=== PATIENT | male | born 1995 | race Caucasian/White ===

== ENCOUNTER 2017-05-06 18:10 | Emergency (ER) | payer OTHER ==
[~2017-05-06] VITALS: Ht 190.5 cm; Wt 68.0 kg
[~2017-05-06 18:10] MED LIST: IBUPROFEN 600600 M1 PO; NOHOMEMEDICATIONS
[2017-05-06 18:41] LABS: ABSOLUTE NEUTROPHILS 6.5 thou/uL (1.4-8.2); BASOPHILS 0.2 % (0.0-2.0); EOSINOPHILS 0.2 % (0.0-3.0); HEMATOCRIT 48.8 % (42.0-52.0); HEMOGLOBIN 17.1 gm/dL (14.0-18.0); MCV 85.5 fL (80.0-100.0); MONOCYTES 5.8 % (1.0-8.0); PLATELET COUNT 206 thou/uL (150-400); POLYS 85.8 % (36.0-66.0); RBC 5.71 mil/uL (4.50-6.00); RDW 12.8 % (10.5-14.5); WBC 7.6 thou/uL (4.0-11.0)
[2017-05-06 18:42] LABS: URINE BILIRUBIN NEGATIVE (Negative); URINE BLOOD NEGATIVE (Negative); URINE CLARITY CLEAR; URINE COLOR YELLOW; URINE GLUCOSE-RANDOM* NEGATIVE (Negative); URINE KETONES 3+ (Negative); URINE LEUKOCYTES NEGATIVE (Negative); URINE NITRITE NEGATIVE (Negative); URINE PROTEIN (DIPSTICK) TRACE (Negative); URINE UROBILINOGEN 0.2 E.U./dl (0.2-1.0)
[2017-05-06 18:45] LABS: URINE REDUCING SUBSTANCE NEGATIVE
[2017-05-06 18:54] LABS: CALCIUM 9.5 mg/dL (8.5-10.1); CREATININE 1.1 mg/dL (0.7-1.3); POTASSIUM 3.2 mmol/L (3.5-5.1)
[2017-05-06 19:00] LABS: ALBUMIN 4.4 g/dL (3.4-5.0); DIRECT BILIRUBIN 0.2 mg/dL (<0.1-0.3); TOTAL PROTEIN 7.9 g/dL (6.4-8.2)
[2017-05-06] MEDS ORDERED: PEPCID20 MG PO (19:36)
[2017-05-06] MEDS ORDERED: PROMS25 WY RECTAL (19:36)
== END 2017-05-06 19:41 | disposition home or self-care (01) ==
LOC: ER 18:10
PROVIDERS: Nurse Practitioner
DX: K52.9 Noninfective gastroenteritis and colitis, unspecified (principal); R11.2 Nausea with vomiting, unspecified; F17.210 Nicotine dependence, cigarettes, uncomplicated

== ENCOUNTER 2019-07-18 16:53 | Observation (INO) | payer OTHER ==
[~2019-07-18] VITALS: Ht 188 cm; Wt 76.2 kg
[~2019-07-18 16:53] MED LIST changes: +PEPCID20 MG PO; +PROMS25 WY RECTAL
[2019-07-18 16:54] VITALS: BP 122/74
[2019-07-18 17:30] LABS: ABSOLUTE NEUTROPHILS 8.9 thou/uL (1.4-8.2); BASOPHILS 0.3 % (0.0-2.0); EOSINOPHILS 0.5 % (0.0-3.0); HEMATOCRIT 51.6 % (42.0-52.0); HEMOGLOBIN 17.7 gm/dL (14.0-18.0); LYMPHOCYTES 7.8 % (24.0-44.0); MCH 30.1 pg (26.0-34.0); MCHC 34.4 g/dL (28.0-37.0); MCV 87.6 fL (80.0-100.0); MONOCYTES 5.6 % (1.0-8.0); PLATELET COUNT 249 thou/uL (150-400); POLYS 85.8 % (36.0-66.0); RBC 5.89 mil/uL (4.50-6.00); RDW 12.9 % (10.5-14.5); WBC 10.4 thou/uL (4.0-11.0)
[2019-07-18 17:37] LABS: URINE BILIRUBIN 2+ (Negative); URINE BLOOD NEGATIVE (Negative); URINE CLARITY CLEAR; URINE COLOR YELLOW; URINE GLUCOSE-RANDOM* NEGATIVE (Negative); URINE KETONES 3+ (Negative); URINE LEUKOCYTES-REFLEX TRACE (Negative); URINE NITRITE-REFLEX NEGATIVE (Negative); URINE PROTEIN (DIPSTICK) 1+ (Negative); URINE SPECIFIC GRAVITY >= 1.030 (1.005-1.035)
[2019-07-18 17:38] LABS: CALCIUM 9.7 mg/dL (8.5-10.1); POTASSIUM 3.5 mmol/L (3.5-5.1)
[2019-07-18 17:39] LABS: ICTOTEST (BILI CONFIRMATORY) Positive (Negative)
[2019-07-18 17:44] LABS: ALBUMIN 4.8 g/dL (3.4-5.0); TOTAL PROTEIN 8.1 g/dL (6.4-8.2)
[2019-07-18 17:44] LABS: AMP/METHAMP Negative (Negative); BARBITURATES Negative (Negative); BENZODIAZEPINES Negative (Negative); CALCIUM OXALATE 4-10 Moderate /LPF (None Seen); COCAINE Negative (Negative); METHADONE Negative (Negative); MUCUS 4-6 Moderate strn/LPF (None Seen); OPIATES Negative (Negative); PCP Negative (Negative)
[2019-07-18 17:46] LABS: BACTERIA-REFLEX 1-9 Few /HPF (None Seen); CASTS None Seen /LPF (None Seen); SQUAMOUS 0-3 Few /LPF (0-3); TRANSITIONAL EPITHEL CELL 0-3 Few /LPF (None Seen); URINE RBC 0-2 Rare /HPF (0-2); URINE WBC-REFLEX 0-5 Rare /HPF (0-5)
[2019-07-18] MEDS ORDERED: ZOFRAN4 MG PO (17:50)
[2019-07-18] MEDS ORDERED: PHENERGAN 25 MG25 MG PO (17:51)
[2019-07-18 17:57] VITALS: BP 122/74
[2019-07-18 18:27] VITALS: BP 130/86
[2019-07-18 19:10] VITALS: BP 114/77
[2019-07-18] MEDS ORDERED: NEXIUM20 MG PO (19:44)
--- NOTE | 2019-07-19 01:36 | NUR ---
PT AOX4. PT DENIES PAIN AND SOB. PT DENIES NAUSEA AT THIS TIME. PT TOLERATING PO INTAKE OF CLEAR LIQUIDS. PT NPO AT MIDNIGHT. PT AMBULATING INDEPENDENTLY WITH STBA. PT ORIENTED TO UNIT. ENCOURAGED PT TO NOTIFY STAFF FOR ALL NEEDS AND CONCERNS. WILL CONTINUE TO MONITOR.
[2019-07-19 04:30] VITALS: BP 129/76
--- NOTE | 2019-07-19 05:04 | NUR ---
CARE ASSUMED AT 0100. PT ALERT AND ORIENTED. IV FLUIDS AND ABX PER EMR. KEPT NPO OVERNIGHT. NO ANY DISCOFORT REPORTED. NO NAUSEA, VOMITING OR DIARRHEA. WILL CONTINUE WITH POC.
[2019-07-19 08:09] VITALS: BP 140/83
--- NOTE | 2019-07-19 14:00 | NUR ---
PT BACK FROM HAVING EDG DR THEISING STATES CAN GO HOME IF TOLERATES CLEAR LIQUID DIET. PT HAS IV ABD INFUSING. STATES NO PAIN OR RESP DISTRESS. IS DRINKING FLUIDS AND EATING JELLO.
[2019-07-19] MEDS ORDERED: NEXIUM20 MG PO (15:10)
[2019-07-19] MEDS ORDERED: ZOFRAN 4 MG ORAL4 MG PO (15:11)
[2019-07-19 16:12] VITALS: BP 144/68
[2019-07-19 17:01] VITALS: BP 144/68
[2019-07-19 17:08] VITALS: BP 144/68
--- NOTE | 2019-07-19 17:09 | P ---
[facility] [place] [address] PROCEDURE REPORT Name: VANESSA MALHOTRA Room #: 437-P ADM IN M.R.#: [id number] Admission: 07/18/19 Attend Phys: Jayant Miranda MD Discharge: Date of : 89 Report #: [id number] THIS REPORT FOR: cc: JACINDA - No family physician/PCP JACINDA - No family physician/PCP Familia Padilla MD ~ CC: Jayant MONACO physician/PCP INPATIENT UPPER ENDOSCOPY REPORT BRIEF HISTORY: The patient is a 24-year-old male who presented to [facility] with persistent nausea and vomiting. He was seen several days ago at [facility] and had a CT scan and was told that he had colitis and discharged on antibiotics. He continued to have nausea and vomiting and now presents to [facility]. It is my understanding that COVID-19 screen in the ER was negative. It is also noted that he smokes marijuana daily and often times smokes multiple times per day. PREOPERATIVE DIAGNOSES: Nausea, vomiting, chronic daily marijuana use. POSTOPERATIVE DIAGNOSES: 1. [id number]-[id number] ulcerative esophagitis, distal esophagus. 2. Gastritis and few scattered erosions. 3. Trauma in cardia of stomach, likely secondary to vomiting. MEDICATIONS: Deep sedation with propofol per anesthesia. SPECIMEN: Biopsies of gastritis. ESTIMATED BLOOD LOSS: 3 mL. PROCEDURE: EGD with biopsy. FINDINGS: Prior to propofol sedation, procedure of upper endoscopy was discussed with the patient as well as potential risks and its complications. He indicates he understands and desires to proceed. DESCRIPTION OF PROCEDURE: With the patient in left lateral decubitus position, the Olympus video endoscope was inserted in cervical esophagus under direct vision without difficulty. Examination of this organ through its entire style length revealed normal esophageal mucosa down the squamocolumnar junction. Squamocolumnar junction was noted to be ulcers involving much of the circumference, but not the entire circumference consistent with a grade C esophagitis. There were some superficial ulcerations. He has had longstanding reflux symptoms and some of this may be related to reflux, but also some of this may be related to recent vomiting. There were no strictures or masses. A [facility] [address] [place] [address] PROCEDURE REPORT Name: VANESSA MALHOTRA Room #: 437-P [facility] IN .R.#: [id number] Admission: 07/18/19 Attend Phys: Jayant Miranda MD Discharge: Date of : 89 Report #: [id number] significant hiatus hernia was not seen. Scope was advanced into the stomach, was examined on end view as well as retroflexed views. Examination of the proximal stomach in particular retroflexed views revealed patchy erythema in the cardia of the stomach. This is likely trauma secondary to vomiting. No ulcers or mass lesions were seen. Examination of the distal stomach revealed gastritis and a couple of erosions were seen, but extensive erosive changes were not seen. The pylorus, duodenal bulb and post-coronary sweep were inspected and noted to be unremarkable. In addition, there was no evidence of ulcer disease nor is there evidence of outlet obstruction. There were no retained solids or liquids within the stomach. At that point, the scope was slowly withdrawn and careful circumferential views confirmed the above findings. The patient tolerated the procedure well. DISPOSITION: The patient with nausea and vomiting. He has not had any bleeding. He has had chronic reflux symptoms, which have not been well treated. He will likely benefit from use of a PPI. Also, his chronic marijuana use certainly may be contributing to his nausea and vomiting. This was discussed with the patient. At this point in time, we will advance diet and see how he does. He is currently on pantoprazole; we would continue. Use Zofran as needed for nausea. If symptoms do not resolve after treatment for reflux and discontinuation of marijuana, further evaluation may be needed. <ELECTRONICALLY SIGNED> By: Familia Padilla MD 07/19/19 1709 [id number] Familia Padilla MD /nt
[2019-07-19 18:19] VITALS: BP 144/68
--- NOTE | 2019-07-19 18:23 | NUR ---
DISCHARGE PAPERS GONE OVER WITH PATIENT SIGNED AND COPY IN CHART. IV ACSESS DCD ALL BELONGINGS PACKED AND SENT WITH PATIENT. PT W/O PAIN OR RESP DISTRESS AT DISCHARGE.
== END 2019-07-19 19:00 | disposition home or self-care (01) ==
LOC: ER 16:53 → 4S 17:38 → EROBS 17:38 → 4S 18:44
PROVIDERS: Emergency Medicine; ADMIT Hospitalist
DX: K22.10 Ulcer of esophagus without bleeding (principal); K29.70 Gastritis, unspecified, without bleeding; R11.2 Nausea with vomiting, unspecified
CPT/HCPCS: 10195; 62110; 62900; 70005

== ENCOUNTER 2019-09-04 17:08 | Emergency (ER) | payer OTHER ==
[~2019-09-04] VITALS: Ht 188 cm; Wt 77.1 kg
[~2019-09-04 17:08] MED LIST changes: +NEXIUM20 MG PO; +PHENERGAN 25 MG25 MG PO; +ZOFRAN 4 MG ORAL4 MG PO; +ZOFRAN4 MG PO
[2019-09-04 17:50] LABS: URINE BILIRUBIN NEGATIVE (Negative); URINE BLOOD NEGATIVE (Negative); URINE CLARITY CLEAR; URINE COLOR YELLOW; URINE GLUCOSE-RANDOM* NEGATIVE (Negative); URINE KETONES 2+ (Negative); URINE LEUKOCYTES-REFLEX NEGATIVE (Negative); URINE NITRITE-REFLEX NEGATIVE (Negative); URINE PROTEIN (DIPSTICK) NEGATIVE (Negative); URINE SPECIFIC GRAVITY 1.025 (1.005-1.035); URINE UROBILINOGEN 0.2 E.U./dl (0.2-1.0)
[2019-09-04 18:17] LABS: ABSOLUTE NEUTROPHILS 7.1 thou/uL (1.4-8.2); BASOPHILS 0.3 % (0.0-2.0); EOSINOPHILS 0.4 % (0.0-3.0); HEMATOCRIT 43.9 % (42.0-52.0); HEMOGLOBIN 14.6 gm/dL (14.0-18.0); LYMPHOCYTES 8.9 % (24.0-44.0); MCH 30.1 pg (26.0-34.0); MCHC 33.3 g/dL (28.0-37.0); MCV 90.2 fL (80.0-100.0); MONOCYTES 5.1 % (1.0-8.0); PLATELET COUNT 210 thou/uL (150-400); POLYS 85.3 % (36.0-66.0); RBC 4.87 mil/uL (4.50-6.00); RDW 13.5 % (10.5-14.5); WBC 8.3 thou/uL (4.0-11.0)
[2019-09-04 18:33] LABS: CALCIUM 9.1 mg/dL (8.5-10.1); POTASSIUM 3.7 mmol/L (3.5-5.1)
[2019-09-04 18:39] LABS: ALBUMIN 4.3 g/dL (3.4-5.0); TOTAL BILIRUBIN 0.4 mg/dL (<0.1-1.0); TOTAL PROTEIN 7.6 g/dL (6.4-8.2)
[2019-09-04] MEDS ORDERED: CARAFATE 1 GM TA1 G1 PO (19:19)
[2019-09-04] MEDS ORDERED: PHENERGAN 25 MG25 M1 PO (19:19)
[2019-09-04 20:14] VITALS: BP 134/78
== END 2019-09-04 20:16 | disposition home or self-care (01) ==
LOC: ER 17:08
PROVIDERS: Physician Assistant
DX: K20.9 Esophagitis, unspecified (principal); R11.2 Nausea with vomiting, unspecified; F17.210 Nicotine dependence, cigarettes, uncomplicated; Z79.899 Other long term (current) drug therapy